=== PATIENT | female | born 1955 | race Caucasian/White ===

== ENCOUNTER 2020-11-17 17:28 | Outpatient (CLI) | payer OTHER, SELFPAY | END 2020-11-17 17:29 | disposition home or self-care (01) | LOC: ANHCOVIDVC 17:28 | PROVIDERS: PCP Family Medicine | DX: Z23 Encounter for immunization (principal) | CPT/HCPCS: 0001A; 91300 ==

== ENCOUNTER 2020-12-08 17:28 | Outpatient (CLI) | payer OTHER, SELFPAY | END 2020-12-08 17:29 | disposition home or self-care (01) | LOC: ANHCOVIDVC 17:28 | PROVIDERS: PCP Family Medicine | DX: Z23 Encounter for immunization (principal) | CPT/HCPCS: 0002A; 91300 ==

== ENCOUNTER 2022-11-30 14:33 | Outpatient (CLI) | payer MEDICARE, OTHER, SELFPAY ==
--- NOTE | ~2022-11-30 | CT_ITS ---
EXAMINATION: CT orbit BI wo/w con DATE: 11/30/2022 15:19 INDICATION: Neuropathic pain TECHNIQUE: Computed tomography (CT) of the orbits was performed without intravenous contrast. Automat ed exposure control and iterative reconstruction technique were employed. Exam dose: 349.66 mGy-cm t otal exam DLP. COMPARISON: None. FINDINGS: No orbital mass lesion. The globes, optic nerves, extraocular muscles are symmetric and unr emarkable. The bony smallwood of the orbits are intact. Paranasal sinuses and mastoid air cells are normally develop ed and aerated. IMPRESSION: No significant abnormality Reviewed, dictated and finalized at Location [facility]. Reviewed, dictated and finalized at location B. IMPRESSION: No significant abnormality
--- NOTE | ~2022-11-30 | CT_ITS ---
EXAMINATION: CT brain wo/w con DATE: 11/30/2022 15:18 INDICATION: Neuropathic pain TECHNIQUE: Computed tomographic angiography (CTA) of the head was performed without and with 100 mL O mnipaque-350 intravenous contrast. Exam dose: 605.33 mGy-cm total exam DLP. Volume-rendered and ma ximum intensity projection 3D reconstructions of the intracranial arteries were created by the techno logist on a separate workstation. COMPARISON: 01/2012 CT brain FINDINGS: No intracranial mass lesion or hemorrhage, midline shift or mass effect effect. Normal vent ricular size. Bilateral carotid siphon internal carotid artery calcifications. No subdural or epidural hematoma. The mastoid air cells and paranasal sinuses are normally developed and aerated. No fracture or bone destruction of the cranial vault. IMPRESSION: Cerebral atherosclerosis; no acute intracranial finding Reviewed, dictated and finalized at Location [facility]. Reviewed, dictated and finalized at location B.
[2022-11-30 15:05] LABS: Estimated Glomerular Filt Rate > 60
== END 2022-11-30 14:34 | disposition home or self-care (01) ==
PROVIDERS: PCP Family Medicine
DX: M79.2 Neuralgia and neuritis, unspecified (principal); I67.2 Cerebral atherosclerosis
CPT/HCPCS: 70470; 70482; Q9967

== ENCOUNTER 2025-03-07 14:16 | Outpatient (CLI) | payer MEDICARE, OTHER, SELFPAY | END 2025-03-07 14:17 | disposition home or self-care (01) | LOC: ANHGOSHLAB 14:16 | PROVIDERS: PCP Family Medicine; Visit Provider Family Medicine | DX: R01.1 Cardiac murmur, unspecified (principal); I31.9 Disease of pericardium, unspecified; R19.7 Diarrhea, unspecified; R53.83 Other fatigue | CPT/HCPCS: 36415; 84443 ==

== ENCOUNTER 2025-04-10 12:44 | Outpatient (CLI) | payer MEDICARE, OTHER, SELFPAY ==
--- NOTE | ~2025-04-10 | DEXA_ITS ---
Bone Density Report Name: DAWNA REICH Age: 69 Sex: Female Ethnicity: White Date of : 1955 Indication: postmenopausal; screening for osteoporosis; parental hip fracture; height loss; history of glucocorticoids; cancer; Referring Provider: JOY AADMS Study: Bone densitometry was performed. Exam Date: April 10, 2025 Accession number: [id number] Bone Density: Region BMD T-score Z-score Classification AP Spine(L1-L4) 0.707 -3.1 -1.1 Osteoporosis Femoral Neck (Left) 0.613 -2.1 -0.4 Osteopenia Total Hip (Left) 0.739 -1.7 -0.2 Osteopenia Femoral Neck (Right) 0.619 -2.1 -0.4 Osteopenia Total Hip (Right) 0.765 -1.4 0.0 Osteopenia Total Hip Mean 0.752 -1.6 -0.1 Osteopenia World Health Organization criteria for BMD impression classify patients as: Normal (T-score at or above -1.0), Osteopenia (T-score between -1.0 and -2.5), or Osteoporosis (T-score at or below -2.5). 10-year Fracture Risk: FRAX not reported because: Some T-score for Spine Total or Hip Total or Femoral Neck at or below -2.5 Clinical Information Provided by Patient: Parent has had a hip fracture Has taken Glucocorticoids Has the following medical conditions: Cancer, CLL Patient maximum height was 65.0 Menopause Age: 59 Drinks caffeinated beverages Onset of menses at age 13 Number of children 3 Impression: The patient has osteoporosis, based on the Total Spine T-score. The patient has risk factors, including: parental hip fracture, history of glucocorticoid therapy. Discussion: INCREASED RISK OF FRACTURE. BONE DENSITY IS UNDESIRABLY LOW AT ONE OR MORE SKELETAL SITES, CONSISTENT WITH POSTMENOPAUSAL OSTEOPOROSIS. This patient's lowest T-score meets the World Health Organization's (WHO) criteria for osteoporosis at one or more sites (T-score -2.5 or below). In untreated patients, the risk of osteoporotic fracture increases approximately two-fold for each 1.0 SD decrease in T-score. Low bone density is not the only risk factor for fracture; also consider factors such as patient's age, frailty or poor health, risk of falling, risk of injury, previous osteoporotic fracture, family history of osteoporosis, cigarette smoking, low body weight, etc. Not everyone with low bone mineral density has osteoporosis; osteomalacia and other metabolic bone disorders should also be considered. Patients who have osteoporosis should be evaluated for specific diseases and conditions (secondary causes) that may cause or contribute to bone loss. The [place] [employer] Clinical Endocrinologists (AACE) and National Osteoporosis Foundation (NOF) recommend pharmacologic intervention for all postmenopausal women whose T-score is in this range. The patient should follow a healthful lifestyle (good nutrition with adequate calcium and vitamin D, and appropriate weight-bearing exercise). Follow-Up: Consider a repeat BMD and Vertebral Fracture Assessment (VFA) exam in 2 years or sooner if medically necessary, to reassess this patient's status. Reported by: LAUREN on 04/10/2025 1:23:00 PM. Reviewed, dictated and finalized at location A.
--- OUTSIDE RECORDS SUMMARY | 2025-04-10 12:48 | XMS_ITS | Referral Summary ---
Author Organization [facility] [address] Address [address] [place] [address] Care Team Providers Care Disability Liaison Officer Name Role Phone Kwame Corrigan MD Primary Care Provider [phone] Patito Pretty PA Unavailable [phone] Encounters Date Type Department Care Team Description 01/21/2025 8:45 AM CDT Lab [facility] - Lab Collection [address] [place] [address] [address] [place] [address] CLL (chronic lymphocytic leukemia) (HCC) 01/21/2025 10:00 AM CDT Office Visit [facility] Hematology [address] [place] [phone] Ximena Larose MD CLL (chronic lymphocytic leukemia) (HCC) (Primary Dx) 01/21/2025 9:00 AM CDT Lab [facility] Oncology Lab [address] [place] [id number] CLL (chronic lymphocytic leukemia) (HCC) from Last 3 Months Allergies No known active allergies Medications HYDROcodone-cady taminophen ([place]) 5-325 mg per tabletIndicatio ns:Pain,Do not take on empty stomach Take 1 tablet by mouth every 4 (four) hours as needed for pain 30 tablet 1 Active Additional Information Patient not taking.Reported on 12/30/2022 predniSONE (DELTASONE) 20 mg tablet TAKE 1 TABLET BY MOUTH ONCE DAILY NEEDED FOR ESPHAGEAL SPASM. 3 Active ibuprofen 200 mg tab/cap Take 1 tablet by mouth every 6 (six) hours as needed Active Active Problems Problem Noted Date Diagnosed Date Strain of right quadriceps 06/09/2023 Assessment & Plan (06/09/2023 4:13 PM CDT): Patient has a strain of her right quadriceps. She should continue with ice packs and elevation. A cane or walker would be advisable. Stretching exercises may be helpful before rising from a chair. She should avoid low seating and chairs without arm wrist to assist her in getting up. She is return the office in 2-3 weeks unless symptom-free Acute medial meniscus tear of left knee 04/30/20 Assessment & Plan (05/21/2021 2:12 PM CDT): Patient is having recurring locking and/or catching of her knee with burning pain in the back aspect of the knee. She does not trust the leg and feels she can turn over as result I would recommend treating her symptomatic meniscal tear. Arthroscopy is generally beneficial for the tearing but she was advised she does have some underlying arthritis and may have some symptoms persist if significant. 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 On plain films she does not have end-stage arthritis and would recommend arthroscopic partial medial meniscectomy. The arthritis present her knee at this time would not warrant knee replacement surgery the patient may get away with much lesser surgery. She wants to wait to see how the right knee recovers following injection in treatment today Arthritis of right knee 04/30/2021 Assessment & Plan (04/30/2021 5:12 PM CDT): Patient has [id number] degenerative arthritis of the right knee with reactive synovitis. After reviewing the treatment options she elected undergo cortisone injection today. She tolerated the procedure well. Arthritis of left knee 03/19/2021 Assessment & Plan (03/19/2021 1:44 PM CDT): Patient has moderate arthritic changes radiographically with reactive synovitis of the knee clinically. After reviewing the treatment options she elected undergo a cortisone injection today. She tolerated the procedure well. Long-term weight loss would likely be beneficial. Other chest pain 06/13/2018 Social History Tobacco Use Types Packs/Day Years Used Date Smoking Tobacco: Never Smokeless Tobacco: Never Alcohol Use Standard Drinks/Week Comments Yes 0 (1 standard drink = 0.6 oz pur e alcohol) social drinker AUDIT-C Answer Date Recorded Q1: How often do you have a drink containing alc ohol? Monthly or less 07/03/2021 Q2: How many drinks containi ng alcohol do you have on a typical day when you are drinking? 1 or 2 07/03/2021 Q3: How often do you have si x or more drinks on one occasion? 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 Gender Identity Female 12/28/2022 10:38 AM CDT Sexual Orientation Not on file Last Filed Vital Signs Vital Sign Reading Time Taken Comments Blood Pressure 131/84 01/21/2025 9:21 AM CDT Pulse 90 01/21/2025 9:21 AM CDT Temperature 36.2 C (97.2 F) 01/21/2025 9:21 AM CDT Respiratory Rate 16 01/21/2025 9:21 AM CDT Oxygen Saturation 97% 01/21/2025 9:21 AM CDT Inhaled Oxygen Concentration - - Weight 96.5 kg (212 lb 11.2 oz) 01/21/2025 9:21 AM CDT Height 163.6 cm (5' 4.4) 01/21/2025 9:21 AM CDT Body Mass Index 36.06 01/21/2025 9:21 AM CDT Plan of Treatment Not on file Procedures Procedure Name Priority Date/Time Associated Diagnosis Comments EGFR Routine 01/21/2025 8:34 AM CDT CLL (chronic lymphocytic leukemia) (HCC) MANUAL DIFFERENTIAL Routine 01/21/2025 8 :34 AM CDT CLL (chronic lymphocytic leukemia) (HCC) COMPREHENSIVE METABOLIC PANEL Routine 01/21/2025 8:34 AM CDT CLL (chronic lymphocytic leukemia) (HCC) LACTATE DEHYDROGENASE Routine 01/21/2025 8:34 AM CDT CLL (chronic lymphocytic leukemia) (HCC) CBC WITH AUTO DIFFERENTIAL Routine 01/21/2025 8:34 AM CDT CLL (chronic lymphocytic leukemia) (HCC) from Last 3 Months Results * eGFR (01/21/2025 8:34 AM CDT) eGFR 72 >=60 mL/min/1. 73 m2 Comment: Interpretive Data Reference Interval Normal >/= 90 mL/min/1.73m2 Mildly decreased* 60 - 89 mL/min/1.73m2 Mildly to moderately decreased 45 - 59 mL/min/1.73m2 Moderately to severely decreased 30 - 44 mL/min/1.73m2 Severely decreased 15 - 29 mL/min/1.73m2 Kidney Failure < 15 mL/min/1.73m2 *Relative to young adult level Estimated glomerular filtration rate is determined by the 2020 CKD-EPI equation recommended by the National Kidney Foundation (A Unifying Approach to GFR Estimation: Recommendations of the NKF-ASK Task Force on Reassessing the Inclusion of Race in Diagnosing Kidney Disease, JASN 2020). The CKD-EPI equation should not be used for patients with unstable renal function and has not been validated in children and those over 70. Current interpretive data was last reviewed 2021. Blood 01/21/2025 8:34 AM CDT 01/21/2025 8:50 AM CDT us Ximena Larose MD LAB BLOOD ORDERABLES Final Resul t [facility] [place] [address] * (ABNORMAL) CBC with auto differential (01/21/2025 8:34 AM CDT) WBC 53.79(H) 3.80 - 9.90 K/cumm Comment:Testing performed by : [facility], [address] [place], [place] [phone] Hgb 14.0 11.9 - 15.5 g/dL CERNER BJ Comment:Testing performed by : [facility], [address] [place], [place] [id number] Hct 41.7 35.6 - 45.5 % CERNER BJ Comment:Testing performed by : [facility], [address] [place], [place] [phone] Plt 230 150 - 400 K/cumm CERNER BJ Comment:Testing performed by : [facility], [address] [place], [place] [phone] MPV 8.3 6.8 - 10.4 fL CERNER BJ Comment:Testing performed by : [facility], [address] [place], [place] [phone] RBC 5.08 3.90 - 5.20 M/cumm CERNER BJ Comment:Testing performed by : [facility], [address] [place] [address] MCV 82.2 81.3 - 96.4 fL CERNER BJ Comment:Testing performed by : [facility], [address] [place], [place] [phone] MCH 27.6 27.1 - 33.3 pg CERNER BJ Comment:Testing performed by : [facility], [address] [place] [address] MCHC 33.6 32.3 - 35.7 g/dL CERNER BJ Comment:Testing performed by : [facility], [address] [place] [address] RDW CV 15.1(H) 11.1 - 14.9 % CERNER BJ Comment:Testing performed by : [facility], [address] [place] [address] NRBC abs 0.10(H) 0.00 - 0.01 K/cumm CERNER BJ Comment:Testing performed by : [facility], [address] [place], [place] [id number] Blood 01/21/2025 8:34 AM CDT 01/21/2025 8:51 AM CDT Ximena Larose MD LAB BLOOD ORDERABLES Edited Resu lt - Final [facility] [place] [address] * (ABNORMAL) Manual Differential (01/21/2025 8:34 AM CDT) Cells Counted 200 Comment:Testing performed by : [facility], [address] [place] [address] Neutrophil abs 5.38 1.50 - 6.50 K/cumm CERETHAN ALONZO Comment:Testing performed by : [facility], [address] [place] [address] Lymphocyte abs 44.65(H) 0.80 - 3.30 K/cumm CERETHAN BJ Comment:Testing performed by : [facility], [address] [place] [address] Monocyte abs 0.54 0.20 - 0.80 K/cumm CERETHAN BJ Comment:Testing performed by : [facility], [address] [place] [address] Eosinophil abs 2.15(H) 0.00 - 0.50 K/cumm CERETHAN BJ Comment:Testing performed by : [facility], [address] [place] [address] Basophil abs 0.00 0.00 - 0.10 K/cumm CERETHAN BJ Comment:Testing performed by : [facility], [address] [place], [place] [phone] Neutrophil pct 10.0 % CERETHAN BJ Comment: Interpretive Data Percent cell count reference ranges are not reported, since discordance with absolute values may lead to misinterpretation of CBC data. Current Interpretive Data was last revised on 2017. Testing performed by: [facility], [address] [place] [phone] Lymphocyte pct 83.0 % [facility] Comment: Interpretive Data Percent cell count reference ranges are not reported, since discordance with absolute values may lead to misinterpretation of CBC data. Current Interpretive Data was last revised on 2017. Testing performed by: [facility], [address] [place] [phone] Monocyte pct 1.0 % [facility] Comment: Interpretive Data Percent cell count reference ranges are not reported, since discordance with absolute values may lead to misinterpretation of CBC data. Current Interpretive Data was last revised on 2017. Testing performed by: [facility], [address] [place] [phone] Eosinophil pct 4.0 % [facility] Comment: Interpretive Data Percent cell count reference ranges are not reported, since discordance with absolute values may lead to misinterpretation of CBC data. Current Interpretive Data was last revised on 2017. Testing performed by: [facility], [address] [place] [phone] Basophil pct 0.0 % CERNER BJ Comment: Interpretive Data Percent cell count reference ranges are not reported, since discordance with absolute values may lead to misinterpretation of CBC data. Current Interpretive Data was last revised on 2017. Testing performed by: [facility], [address] [place] [phone] Metamyelocyte pct 2.0(H) 0.0 - 0.0 % [facility] Comment:Testing performed by : [facility], [address] [place] [phone] Variant lymph pct 2.0(H) 0.0 - 0.0 % [facility] Comment:Testing performed by : [facility], [address] [place] [phone] Smudge cells, qual Present(A) [facility] Comment:Testing performed by : [facility], [address] [place] [phone] Anisocytosis 1+(A) [facility] Comment:Testing performed by : [facility], [address] [place] [phone] Microcytes 1+(A) [facility] Comment:Testing performed by : [facility], [address] [place] [phone] Macrocytes 1+(A) [facility] Comment:Testing performed by : [facility], [address] [place] [phone] Elliptocytes 1+(A) [facility] Comment:Testing performed by : [facility], [address] [place] [phone] Platelet estimate Adequate [facility] Comment:Testing performed by : [facility], [address] [place] [phone] Blood 01/21/2025 8:34 AM CDT 01/21/2025 8:51 AM CDT Ximena Larose MD LAB BLOOD ORDERABLES Final Resul t Performing Organization Address [facility] de Phone Number [facility] [place] [address] * Lactate dehydrogenase (LD) (01/21/2025 8:34 AM CDT) [facility] Lactate dehydrogenase (LDH) 176 100 - 250 Units/L Blood 01/21/2025 8:34 AM CDT 01/21/2025 8:50 AM CDT Ximena Larose MD LAB BLOOD ORDERABLES Final Resul t Performing Organization Address [facility] [place] [address] * Comprehensive metabolic panel (01/21/2025 8:34 AM CDT) [facility] Sodium 141 135 - 145 mmol/L Potassium, pl 3.4 3.3 - 4.9 mmol/L [facility] Chloride 106 97 - 110 mmol/L [facility] CO2 25 22 - 32 mmol/L [facility] Anion gap 10 2 - 15 mmol/L [facility] BUN 12 6 - 25 mg/dL [facility] Creatinine 0.88 0.60 - 1.10 mg/dL [facility] Glucose 128 70 - 199 mg/dL [facility] Comment: Interpretive Data Fasting glucose >/= 126 mg/dl is diagnostic for diabetes. Fasting is defined as no caloric intake for at least 8 hours. Fasting glucose between 100 mg/dl to 125 mg/dl is diagnostic of prediabetes. In a patient with classic symptoms of hyperglycemia or hyperglycemic crisis, a random glucose >/= 200 mg/dl is diagnostic for diabetes. In the absence of unequivocal hyperglycemia, results should be confirmed by repeat testing. The classification and Diagnosis of Diabetes Diabetes Care 202; 46: S19-S40. Current interpretive data was last revised 2022. Calcium 9.6 8.5 - 10.3 mg/dL [facility] Bilirubin, total 0.6 0.1 - 1.2 mg/dL [facility] Protein, pl 7.2 6.5 - 8.5 g/dL [facility] Albumin 4.5 3.5 - 5.0 g/dL [facility] Alk phos 103 40 - 130 Units/L [facility] ALT 41 7 - 45 Units/L [facility] AST 27 10 - 45 Units/L [facility] Blood 01/21/2025 8:34 AM CDT 01/21/2025 8:50 AM CDT Ximena Larose MD LAB BLOOD ORDERABLES Final Resul t [facility] [place] [address] from Last 3 Months Insurance [facility] [id number] Member Subscriber Plan / Payer (Ef fective 2021-) Name:Apoorva Maldonado Member ID:[id number] Relation to Subscriber:Self Name:Apoorva Maldonado Subscriber ID:[id number] Payer ID:[id number] Type:[employer] HMO/PPO Address: [employer] CLAIMS [address] [place] [id number] MEDICARE [facility] Address: [address] [place] [address] [facility] [id number] Member Subscriber Plan / Payer ( fective 2021-) Name:Apoorva Maldonado Member ID:[id number] Relation to Subscriber:Self Name:Apoorva Maldonado Subscriber ID:[id number] Payer ID:[id number] Type:[employer] HMO/PPO Address: [employer] CLAIMS [address] [place] [id number] MEDICARE MEDICARE [facility] Address: [address] [address] [place] [address] [facility] [id number] Care Teams Disability Liaison Officer Relationship Specialty Start Date End Date Kwame Corrigan MD PCP - General Family Medicine 04/07/18 [place] [address] [address] Physician Data Governance Consultant Orthopedic Surgery 07/03/21
--- OUTSIDE RECORDS SUMMARY | 2025-04-10 12:48 | XMS_ITS | Clinical Summary ---
Author Organization [facility] [place] [address] Address [address] [place] [address] Care Team Providers Care Traffic Agent Name Role Phone Kwame Corrigan MD Primary Care Provider [phone] Patito Pretty PA Unavailable [phone] Allergies No known active allergies Medications HYDROcodone-cady taminophen ([place]) 5-325 mg per tabletIndicatio ns:Pain,Do not take [...] Plan (04/30/2021 5:12 PM CDT): Patient has [id number] degenerative arthritis of the right knee with [...] likely be beneficial. Other chest pain 06/13/2018 Encounters Date Type Department Care Team Description 01/21/2025 10:00 AM CDT Office Visit [facility] Hematology [address] [place] [phone] Ximena Larose MD CLL (chronic lymphocytic leukemia) (HCC) (Primary Dx) 01/21/2025 9:00 AM CDT Lab [facility] Oncology Lab [address] [place] [address], [place] [address] CLL (chronic lymphocytic leukemia) (HCC) 01/21/2025 8:45 AM CDT Lab [facility] - Lab [facility] [address] [facility] [address] [place] [address] CLL (chronic lymphocytic leukemia) (HCC) from Last 3 Months Surgical History Surgery Date Site/Laterality Comments TONSILLECTOMY 09/12/1975 - 09/11/1976 Bilateral KNEE ARTHROSCOPY 07/03/2021 Left Family History Medical History Relation Name Comments Cancer Mother Heart disease Mother Relation Name Status Comments Mother (Age 88) Social History Tobacco Use Types Packs/Day Years [...] on file 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 Gender Identity Female 12/28/2022 10:38 AM CDT Sexual Orientation Not on file Obstetrics History Last Filed Vital Signs Vital Sign Reading [...] 01/21/2025 9:21 AM CDT Plan of Treatment Health Maintenance Due Date Last Done Comments Breast Cancer Screening-Mammogram 1955 Colon Cancer Screening-Colonoscopy 1955 Depression Screening 1955 Hepatitis C Screening 1955 Osteoporosis Screening-Bone Density Scan 1955 DTaP/Tdap/Td Vaccine (1 - Tdap) 1967 Hepatitis B Screening 1974 Pneumococcal vaccine 65+ (1 of 2 - PCV) 1975 Zoster Vaccine (1 of 2) 1975 Covid-19 Vaccine (3 - Pfizer risk series) 01/05/2021 12/08/2020, 11/17/2020 Well Visit 65+ 2021 Fall Risk Assessment 07/03/2022 07/03/2021 Influenza Vaccine (#1) 2025 Procedures Procedure Name Priority Date/Time Associated Diagnosis [...] data was last reviewed 2021. Blood 01/21/2025 8:3 4 AM CDT 01/21/2025 8:50 AM CDT us Ximena Larose MD LAB BLOOD ORDERABLES Final Resul t [facility] [place] [address] * (ABNORMAL) CBC with auto differential (01/21/2025 8:34 AM CDT) WBC 53.79(H) 3.80 - 9.90 K/cumm Comment:Testing performed by : [facility], [address] [place] [address] Hgb 14.0 11.9 - 15.5 g/dL [facility] Comment:Testing performed by : [facility], [address] [place] [address] Hct 41.7 35.6 - 45.5 % [facility] Comment:Testing performed by : [facility], [address] [place] [address] Plt 230 150 - 400 K/cumm [facility] Comment:Testing performed by : [facility], [address] [place] [address] MPV 8.3 6.8 - 10.4 fL [facility] Comment:Testing performed by : [facility], [address] [place] [address] RBC 5.08 3.90 - 5.20 M/cumm [facility] Comment:Testing performed by : [facility], [address] [place] [address] MCV 82.2 81.3 - 96.4 fL [facility] Comment:Testing performed by : [facility], [address] [place] [address] MCH 27.6 27.1 - 33.3 pg [facility] Comment:Testing performed by : [facility], [address] [place] [address] MCHC 33.6 32.3 - 35.7 g/dL [facility] Comment:Testing performed by : [facility], [address] [place] [address] RDW CV 15.1(H) 11.1 - 14.9 % [facility] Comment:Testing performed by : [facility], [address] [place] [address] NRBC abs 0.10(H) 0.00 - 0.01 K/cumm [facility] Comment:Testing performed by : [facility], [address] [place] [address] Blood 01/21/2025 8:34 AM CDT 01/21/2025 8:51 AM CDT Ximena Larose MD LAB BLOOD ORDERABLES Edited Resu lt - Final [facility] [place] [address] * (ABNORMAL) Manual Differential (01/21/2025 8:34 AM CDT) Cells Counted 200 Comment:Testing performed by : [facility], [address] [place] [address] Neutrophil abs 5.38 1.50 - 6.50 K/cumm [facility] Comment:Testing performed by : [facility], [address] [place] [address] Lymphocyte abs 44.65(H) 0.80 - 3.30 K/cumm [facility] Comment:Testing performed by : [facility], [address] [place] [phone] Monocyte abs 0.54 0.20 - 0.80 K/cumm [facility] Comment:Testing performed by : [facility], [address] [place], [place] [phone] Eosinophil abs 2.15(H) 0.00 - 0.50 K/cumm [facility] Comment:Testing performed by : [facility], [address] [place], [place] [phone] Basophil abs 0.00 0.00 - 0.10 K/cumm [facility] Comment:Testing performed by : [facility], [address] [place] [address] Neutrophil pct 10.0 % [facility] Comment: Interpretive Data Percent cell count reference ranges are not reported, since discordance with absolute values may lead to misinterpretation of CBC data. Current Interpretive Data was last revised on 2017. Testing performed by: [facility], [address] [place] [address] Lymphocyte pct 83.0 % [facility] Comment: Interpretive Data Percent cell count reference ranges are not reported, since discordance with absolute values may lead to misinterpretation of CBC data. Current Interpretive Data was last revised on 2017. Testing performed by: [facility], [address] [place] [phone] Monocyte pct 1.0 % [facility] Comment: Interpretive Data Percent cell count reference ranges are not reported, since discordance with absolute values may lead to misinterpretation of CBC data. Current Interpretive Data was last revised on 2017. Testing performed by: [facility], [address] [place] [phone] Eosinophil pct 4.0 % [facility] Comment: Interpretive Data Percent cell count reference ranges are not reported, since discordance with absolute values may lead to misinterpretation of CBC data. Current Interpretive Data was last revised on 2017. Testing performed by: [facility], [address] [place] [phone] Basophil pct 0.0 % [facility] Comment: Interpretive Data Percent cell count reference ranges are not reported, since discordance with absolute values may lead to misinterpretation of CBC data. Current Interpretive Data was last revised on 2017. Testing performed by: [facility], [address] [place], [place] [phone] Metamyelocyte pct 2.0(H) 0.0 - 0.0 % [facility] Comment:Testing performed by : [facility], [address] [place], [place] [id number] Variant lymph pct 2.0(H) 0.0 - 0.0 % [facility] Comment:Testing performed by : [facility], [address] [place], [place] [id number] Smudge cells, qual Present(A) [facility] Comment:Testing performed by : [facility], [address] [place], [place] [phone] Anisocytosis 1+(A) [facility] Comment:Testing performed by : [facility], [address] [place] [address] Microcytes 1+(A) [facility] Comment:Testing performed by : [facility], [address] [place], [place] [phone] Macrocytes 1+(A) [facility] Comment:Testing performed by : [facility], [address] [place], [place] [phone] Elliptocytes 1+(A) [facility] Comment:Testing performed by : [facility], [address] [place] [address] Platelet estimate Adequate [facility] Comment:Testing performed by : [facility], [address] [place] [phone] Blood 01/21/2025 8:34 AM CDT 01/21/2025 8:51 AM CDT us Ximena Larose MD LAB BLOOD ORDERABLES Final Resul t [facility] [place] [address] * Lactate dehydrogenase (LD) (01/21/2025 8:34 AM CDT) Lactate dehydrogenase (LDH) 176 100 - 250 Units/L Blood 01/21/2025 8:34 AM CDT 01/21/2025 8:50 AM CDT Ximena Larose MD LAB BLOOD ORDERABLES Final Resul t [facility] [place] [address] * Comprehensive metabolic panel (01/21/2025 8:34 AM CDT) Pathologist [facility] Sodium 141 135 - 145 mmol/L Potassium, pl 3.4 3.3 - 4.9 mmol/L [facility] Chloride 106 97 - 110 mmol/L [facility] CO2 25 22 - 32 mmol/L [facility] Anion gap 10 2 - 15 mmol/L [facility] BUN 12 6 - 25 mg/dL [facility] Creatinine 0.88 0.60 - 1.10 mg/dL [facility] Glucose 128 70 - 199 mg/dL [facility] Comment: Interpretive Data Fasting glucose >/= [...] 2022. Calcium 9.6 8.5 - 10.3 mg/dL [facility] Bilirubin, total 0.6 0.1 - 1.2 mg/dL [facility] Protein, pl 7.2 6.5 - 8.5 g/dL [facility] Albumin 4.5 3.5 - 5.0 g/dL [facility] Alk phos 103 40 - 130 Units/L [facility] ALT 41 7 - 45 Units/L [facility] AST 27 10 - 45 Units/L [facility] Blood 01/21/2025 8:34 AM CDT 01/21/2025 8:50 AM CDT Ximena Larose MD LAB BLOOD ORDERABLES Final Resul t [facility] [place] [address] from Last 3 Months Insurance [facility] [id number] MEDICARE [facility] [id number] MEDICARE MEDICARE [facility] [id number] Care Teams Traffic Agent Relationship Specialty Start Date End Date Kwame Corrigan MD PCP - General Family Medicine 04/07/18 [place] [address] [address] Physician [employer] Systems Administrator Orthopedic Surgery 07/03/21
== END 2025-04-10 12:45 | disposition home or self-care (01) ==
LOC: ANHIMG 12:45
PROVIDERS: PCP Family Medicine; Visit Provider Family Medicine
DX: M85.89 Other specified disorders of bone density and structure, multiple sites (principal); M81.0 Age-related osteoporosis without current pathological fracture; Z78.0 Asymptomatic menopausal state
CPT/HCPCS: 77080

== ENCOUNTER 2025-06-25 13:56 | Outpatient (CLI) | payer MEDICARE, OTHER, SELFPAY ==
--- NOTE | ~2025-06-25 | MM_ITS ---
EXAMINATION: MM screening jm BI w viraj HISTORY: Screening TECHNIQUE: Craniocaudal and mediolateral oblique 3-D tomosynthesis images were obtained and synthetic 2-D images were generated. CAD analysis was submitted and interpreted. COMPARISON: No prior mammogram is available for comparison at this institution. BREAST PARENCHYMAL COMPOSITION: There are scattered areas of fibroglandular density. FINDINGS: There is no evidence of suspicious mass, calcification, or architectural distortion in either breast to suggest malignancy. IMPRESSION: 1. No mammographic evidence of malignancy. Recommend routine screening mammography in one year. BI-RADS Category 1: Negative Reviewed, dictated and finalized at location Q. IMPRESSION: 1. No mammographic evidence of malignancy. Recommend routine screening mammogra phy in one year. BI-RADS Category 1: Negative
--- OUTSIDE RECORDS SUMMARY | 2025-06-25 15:58 | XMS_ITS | Clinical Summary ---
Author Organization [facility] [place] [address] Address [address] [place] [address] Care Team Providers Care Clinical Dietetic Technician Name Role Phone Kwame Corrigan MD Primary Care Provider [phone] Patito Pretty PA Unavailable [phone] Allergies No known active allergies Medications HYDROcodone-cady taminophen ([place]) 5-325 mg per tabletIndicatio ns:Pain,Do not take [...] Plan (04/30/2021 5:12 PM CDT): Patient has [id number] degenerative arthritis of the right knee with [...] Encounters Date Type Department Care Team Description 04/22/2025 11:15 AM CDT Lab [facility] Medicine Oncology Lab [address] [place] [address] 6 [place] [address] CLL (chronic lymphocytic leukemia) 04/22/2025 11:00 AM CDT Lab [facility] - Lab Collection [address] [place] [address] 6 [place] [address] CLL (chronic lymphocytic leukemia) from Last 3 Months Surgical History Surgery [...] on file 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 Gender Identity Female 12/28/2022 10:38 AM CDT [...] 1975 Zoster Vaccine (1 of 2) 1975 Well Visit 65+ 2021 Fall Risk Assessment 07/03/2022 07/03/2021 Covid-19 Vaccine (3 - season) 2025, 11/17/2020 Influenza Vaccine (#1) 2025 Procedures Procedure Name Priority Date/Time Associated Diagnosis Comments EGFR Routine 04/22/2025 11:16 AM CDT CLL (chronic lymphocytic leukemia) MANUAL DIFFERENTIAL Routine 04/22/2025 1 1:16 AM CDT CLL (chronic lymphocytic leukemia) CBC WITH AUTO DIFFERENTIAL Routine 04/22/2025 11:16 AM CDT CLL (chronic lymphocytic leukemia) COMPREHENSIVE METABOLIC PANEL Routine 04/22/2025 11:16 AM CDT CLL (chronic lymphocytic leukemia) LACTATE DEHYDROGENASE Routine 04/22/2025 11:16 AM CDT CLL (chronic lymphocytic leukemia) from Last 3 Months Results * eGFR (04/22/2025 11:16 AM CDT) eGFR 77 >=60 mL/min/1. 73 m2 Comment: Interpretive Data [...] interpretive data was last reviewed 2021. Blood 04/22/2025 11:1 6 AM CDT 04/22/2025 11:23 AM CDT Ximena Larose MD LAB BLOOD ORDERABLES Final Resul t [facility] Department [place] [address] * (ABNORMAL) CBC with auto differential (04/22/2025 11:16 AM CDT) WBC 47.64(H) 3.80 - 9.90 K/cumm Comment:Testing performed by : [facility], [address] [place] [address] Hgb 14.1 11.9 - 15.5 g/dL EVERARDO ALONZO Comment:Testing performed by : [facility], [address] [place] [address] Hct 42.6 35.6 - 45.5 % EVERARDO ALONZO Comment:Testing performed by : [facility], [address] [place] [address] Plt 223 150 - 400 K/cumm EVERARDO ALONZO Comment:Testing performed by : [facility], [address] [place] [address] MPV 8.3 6.8 - 10.4 fL EVERARDO ALONZO Comment:Testing performed by : [facility], [address] [place] [address] RBC 5.18 3.90 - 5.20 M/cumm EVERARDO BJ Comment:Testing performed by : [facility], [address] [place] [address] MCV 82.2 81.3 - 96.4 fL EVERARDO ALONZO Comment:Testing performed by : [facility], [address] [place] [address] MCH 27.3 27.1 - 33.3 pg CERETHAN ALONZO Comment:Testing performed by : [facility], [address] [place] [address] MCHC 33.2 32.3 - 35.7 g/dL EVERARDO ALONZO Comment:Testing performed by : [facility], [address] [place] [address] RDW CV 14.7 11.1 - 14.9 % EVERARDO ALONZO Comment:Testing performed by : [facility], [address] [place] [address] NRBC abs 0.10(H) 0.00 - 0.01 K/cumm EVERARDO ALONZO Comment:Testing performed by : [facility], [address] [place] [address] Blood 04/22/2025 11:1 6 AM CDT 04/22/2025 11:22 AM CDT Ximena Larose MD LAB BLOOD ORDERABLES Edited Resu lt - Final EVERARDO [facility] Department [place] [address] * (ABNORMAL) Manual Differential (04/22/2025 11:16 AM CDT) Cells Counted 200 Comment:Testing performed by : [facility], [address] [place] [address] Neutrophil abs 5.72 1.50 - 6.50 K/cumm EVERARDO ALONZO Comment:Testing performed by : [facility], [address] [place] [address] Lymphocyte abs 39.54(H) 0.80 - 3.30 K/cumm EVERARDO ALONZO Comment:Testing performed by : [facility], [address] [place] [address] Monocyte abs 1.91(H) 0.20 - 0.80 K/cumm EVERARDO ALONZO Comment:Testing performed by : [facility], [address] [place] [phone] Eosinophil abs 0.48 0.00 - 0.50 K/cumm CERNER BJ Comment:Testing performed by : [facility], [address] [place] [phone] Basophil abs 0.00 0.00 - 0.10 K/cumm CERNER [facility] Comment:Testing performed by : [facility], [address] [place] [phone] Neutrophil pct 12.0 % CERNER BJ Comment: Interpretive Data Percent cell count reference ranges are not reported, since discordance with absolute values may lead to misinterpretation of CBC data. Current Interpretive Data was last revised on 2017. Testing performed by: [facility], [address] [place] [phone] Lymphocyte pct 83.0 % CERNER BJ Comment: Interpretive Data Percent cell count reference ranges are not reported, since discordance with absolute values may lead to misinterpretation of CBC data. Current Interpretive Data was last revised on 2017. Testing performed by: [facility], [address] [place] [address] Monocyte pct 4.0 % CERNER BJ Comment: Interpretive Data Percent cell count reference ranges are not reported, since discordance with absolute values may lead to misinterpretation of CBC data. Current Interpretive Data was last revised on 2017. Testing performed by: [facility], [address] [place] [phone] Eosinophil pct 1.0 % CERNER BJ Comment: Interpretive Data Percent cell count reference ranges are not reported, since discordance with absolute values may lead to misinterpretation of CBC data. Current Interpretive Data was last revised on 2017. Testing performed by: [facility], [address] [place] [phone] Basophil pct 0.0 % CERNER BJ Comment: Interpretive Data Percent cell count reference ranges are not reported, since discordance with absolute values may lead to misinterpretation of CBC data. Current Interpretive Data was last revised on 2017. Testing performed by: [facility], [address] [place] [phone] Variant lymph pct 1.0(H) 0.0 - 0.0 % EVERARDO [facility] Comment:Testing performed by : [facility], [address] [place] [phone] Smudge cells, qual Present(A) [facility] Comment:Testing performed by : [facility], [address] [place], [place] [phone] RBC morphology Normal [facility] Comment:Testing performed by : [facility], [address] [place], [place] [phone] Platelet estimate Adequate [facility] Comment:Testing performed by : [facility], [address] [place] [phone] Blood 04/22/2025 11:1 6 AM CDT 04/22/2025 11:22 AM CDT Ximena Larose MD LAB BLOOD ORDERABLES Final Resul t Performing Organization Address [facility] Co de Phone Number [facility] Department of [employer] [place] [address] * Lactate dehydrogenase (LD) (04/22/2025 11:16 AM CDT) Pathologist [facility] Lactate dehydrogenase (LDH) 174 100 - 250 Units/L Blood 04/22/2025 11:1 6 AM CDT 04/22/2025 11:23 AM CDT Ximena Larose MD LAB BLOOD ORDERABLES Final Resul t Performing Organization Address City/[facility] Co de Phone Number [facility] [place] [address] * Comprehensive metabolic panel (04/22/2025 11:16 AM CDT) Pathologist [facility] Sodium 140 135 - 145 mmol/L Potassium, pl 4.4 3.3 - 4.9 mmol/L [facility] Chloride 106 97 - 110 mmol/L [facility] CO2 25 22 - 32 mmol/L [facility] Anion gap 9 2 - 15 mmol/L [facility] BUN 18 6 - 25 mg/dL [facility] Creatinine 0.83 0.60 - 1.10 mg/dL [facility] Glucose 110 70 - 199 mg/dL [facility] Comment: Interpretive Data Fasting glucose >/= 126 [...] interpretive data was last revised 2022. Calcium 9.3 8.5 - 10.3 mg/dL [facility] Bilirubin, total 0.6 0.1 - 1.2 mg/dL [facility] Protein, pl 7.0 6.5 - 8.5 g/dL [facility] Albumin 4.5 3.5 - 5.0 g/dL [facility] Alk phos 94 40 - 130 Units/L [facility] ALT 27 7 - 45 Units/L [facility] AST 23 10 - 45 Units/L [facility] Blood 04/22/2025 11:1 6 AM CDT 04/22/2025 11:23 AM CDT Ximena Lraose MD LAB BLOOD ORDERABLES Final Resul t [facility] One [facility] Department [place] [address] from Last 3 Months Insurance [facility] [id number] MEDICARE [facility] [id number] MEDICARE MEDICARE [facility] Address: [address] [address] [place] [address] [facility] [id number] Care Teams Clinical Dietetic Technician Relationship Specialty Start Date End Date Kwame Corrigan MD PCP - General Family Medicine 04/07/18 [place] [address] [address] Physician Rn Support Services Orthopedic Surgery 07/03/21
== END 2025-06-25 13:57 | disposition home or self-care (01) ==
LOC: ANHFOHIMG 13:58
PROVIDERS: PCP Family Medicine; Visit Provider Family Medicine
DX: Z12.31 Encounter for screening mammogram for malignant neoplasm of breast (principal)
CPT/HCPCS: 77063; 77067